=== PATIENT | female | born 1970 | race Caucasian/White ===

== ENCOUNTER 2017-05-07 11:25 | Day surgery (SDC) | payer BC ==
--- NOTE | 2017-05-07 12:22 | CT ---
EXAMINATION TYPE: CT soft tissue neck w con DATE OF EXAM: 05/07/2017 COMPARISON: NONE HISTORY: Thyroid nodule, Abnormal thryoid labs CT DLP: 715 mGycm CONTRAST: CT scan of the neck is performed with IV Contrast, patient injected with 100 ml mL of Omnipaque 300. Contrast enhanced CT of the neck was performed from the skull base through the lung apices. AIRWAY: The supraglottic, glottic, and subglottic portions of the airway appear patent and free of mass. SALIVARY GLANDS: The submandibular and parotid glands are free of mass or inflammatory process. THYROID GLAND: Nodular enlargement of both thyroid lobes right greater than left as well as the thyro id isthmus. The right thyroid lobe measures 6.2 cm craniocaudal dimension and on the left 4.6 cm. Inf erior margin extends to the superior margin of the sternum. The nodules are indistinct and difficult to measure. LYMPH NODES: No adenopathy seen greater than 1cm. LUNG APICES: No nodule or mass is seen. OTHER: Vascular structures are patent. No significant degenerative change of the cervical spine. N o abscess seen. IMPRESSION: Findings felt to reflect thyroid goiter.
[2017-05-07 12:56] VITALS: BP 132/79; PULSE 70; RESP 20; TEMP 97.9
--- NOTE | 2017-05-07 14:15 | US ---
Discontinued thyroid fine-needle aspiration HISTORY: Abnormal thyroid labs, R 90.6 Evaluation of the thyroid shows a diffuse heterogeneous gland. Discrete thyroid nodule for thyroid FN A is not identified IMPRESSION: Discontinued fine-needle aspiration thyroid
== END 2017-05-07 13:15 | disposition home or self-care (01) ==
LOC: RADCTMAIN 11:25
PROVIDERS: ATTEND Surgery Plastic and Reconstructive Surgery
DX: E04.1 Nontoxic single thyroid nodule (principal); R94.6 Abnormal results of thyroid function studies; R22.0 Localized swelling, mass and lump, head; Z53.8 Procedure and treatment not carried out for other reasons
CPT/HCPCS: 76536; 70491; 10022; Q9967

== ENCOUNTER → 2017-05-22 | Outpatient (CLI) | payer BC ==
[2017-05-22 13:28] VITALS: BP 138/83; PULSE 89; RESP 16; TEMP 98; BMI 42.1
[2017-05-22 14:47] LABS: CH 29.1; CHCM 32.4; HCT 40.1 % (34.0-46.0); HDW 2.75; HGB 12.8 gm/dL (11.4-16.0); MCH 28.9 pg (25.0-35.0); MCV 90.2 fL (80.0-100.0); Mean Platelet Volume 7.4; RBC 4.45 m/uL (3.80-5.40); RDW 14.5 % (11.5-15.5); WBC 7.7 k/uL (3.8-10.6)
[2017-05-22 15:31] LABS: INR 0.9 (<1.2); Partial Thromboplastin Time 23.5 sec (22.0-30.0); Prothrombin Time 9.4 sec (9.0-12.0)
[2017-05-22 20:32] LABS: ALT 45 U/L (9-52); AST 34 U/L (14-36); Alkaline Phosphatase 127 U/L (38-126); Anion Gap 10 mmol/L; Blood Urea Nitrogen 11 mg/dL (7-17); Calcium 9.2 mg/dL (8.4-10.2); Carbon Dioxide 21 mmol/L (22-30); Chloride 110 mmol/L (98-107); Cholesterol 146 mg/dL (<200); Glucose 104 mg/dL (74-99); HDL Cholesterol 45 mg/dL (40-60); Iron 39 ug/dL (37-170); Magnesium 1.8 mg/dL (1.6-2.3); Non-African American GFR(MDRD) >60 (>60 ml/min/1.73 sqM); Potassium 4.1 mmol/L (3.5-5.1); Sodium 141 mmol/L (137-145); Total Bilirubin 0.2 mg/dL (0.2-1.3)
[2017-05-22 20:42] LABS: % Iron Saturation 12.2 % (20-50); Prealbumin 19 mg/dL (18-36); Total Iron Binding Capacity 320 ug/dL (265-497)
[2017-05-22 21:37] LABS: Vitamin B12 727 pg/mL (239-931)
[2017-05-23 14:39] LABS: Hemoglobin A1C 5.4 % (4.2-6.1)
[2017-05-24 21:22] LABS: Selenium 106 mcg/L (63-160)
== END | disposition home or self-care (01) ==
LOC: BARWHC3 13:13
PROVIDERS: ATTEND Surgery Plastic and Reconstructive Surgery
DX: Z48.815 Encounter for surgical aftercare following surgery on the digestive system (principal); Z98.84 Bariatric surgery status; E66.01 Morbid (severe) obesity due to excess calories; E89.1 Postprocedural hypoinsulinemia; D50.8 Other iron deficiency anemias; E44.0 Moderate protein-calorie malnutrition; E55.9 Vitamin D deficiency, unspecified; K74.1 Hepatic sclerosis; N19 Unspecified kidney failure; K50.90 Crohn's disease, unspecified, without complications; Z68.41 Body mass index [BMI] 40.0-44.9, adult
CPT/HCPCS: 80053; 80061; 82306; 82525; 82607; 82728; 82746; 83036; 83540; 83550; 83735; 83970; 84100; 84134; 84255; 84425; 84443; 84590; 84630; 85027; 85610; 85730; 99211

== ENCOUNTER → 2017-06-11 | Outpatient (CLI) | payer BC ==
[2017-06-11 13:38] VITALS: BMI 42.1
== END | disposition home or self-care (01) ==
LOC: MNTWWP 11:33
PROVIDERS: ATTEND Surgery Plastic and Reconstructive Surgery
DX: E66.01 Morbid (severe) obesity due to excess calories (principal)
CPT/HCPCS: 97803

== ENCOUNTER → 2017-07-11 | Outpatient (CLI) | payer BC ==
[2017-07-11 15:09] VITALS: BMI 42.5
== END | disposition home or self-care (01) ==
LOC: MNTWWP 12:39
PROVIDERS: ATTEND Surgery Plastic and Reconstructive Surgery
DX: E66.01 Morbid (severe) obesity due to excess calories (principal)
CPT/HCPCS: 97803

== ENCOUNTER → 2018-01-15 | Outpatient (CLI) | payer BC ==
[2018-01-15 14:57] VITALS: BP 156/75; PULSE 105; RESP 16; TEMP 97.6; BMI 45.6
[2018-01-15 16:10] LABS: HCT 35.6 % (34.0-46.0); HGB 11.1 gm/dL (11.4-16.0); Hypochromasia Slight; MCH 26.1 pg (25.0-35.0); MCHC 31.2 g/dL (31.0-37.0); MCV 83.6 fL (80.0-100.0); Mean Platelet Volume 6.9; Platelet Count 402 k/uL (150-450); RBC 4.26 m/uL (3.80-5.40); RDW 14.7 % (11.5-15.5); WBC 7.2 k/uL (3.8-10.6)
[2018-01-15 16:26] LABS: ALT 40 U/L (9-52); AST 56 U/L (14-36); Albumin 3.5 g/dL (3.5-5.0); Alkaline Phosphatase 151 U/L (38-126); Anion Gap 15 mmol/L; Blood Urea Nitrogen 12 mg/dL (7-17); Calcium 9.3 mg/dL (8.4-10.2); Carbon Dioxide 20 mmol/L (22-30); Chloride 109 mmol/L (98-107); Cholesterol 145 mg/dL (<200); Glucose 104 mg/dL (74-99); HDL Cholesterol 49 mg/dL (40-60); LDL Cholesterol,Calculated 63 mg/dL (0-99); Magnesium 1.9 mg/dL (1.6-2.3); Phosphorus 4.3 mg/dL (2.5-4.5); Potassium 4.4 mmol/L (3.5-5.1); Sodium 144 mmol/L (137-145); Total Bilirubin 0.2 mg/dL (0.2-1.3); Total Protein 7.4 g/dL (6.3-8.2); Triglycerides 166 mg/dL (<150)
[2018-01-15 16:55] LABS: INR 0.9 (<1.2); Partial Thromboplastin Time 22.6 sec (22.0-30.0); Prothrombin Time 9.3 sec (9.0-12.0)
[2018-01-16 01:14] LABS: Parathyroid Hormone Intact 102.2 pg/mL (14.0-72.0)
[2018-01-16 02:00] LABS: Vitamin D 25 Hydroxy 19.9 ng/mL (30.0-100.0)
[2018-01-16 02:07] LABS: Folate, Serum >24.0 ng/mL; Iron Saturation 5.07 (12.00-45.00)
[2018-01-16 02:10] LABS: Hemoglobin A1C 5.4 % (4.0-6.0)
[2018-01-16 15:49] LABS: Zinc, Serum 53 ug/dL (60-130)
[2018-01-17 05:47] LABS: Vitamin A 36 ug/dL (38-106)
[2018-01-17 09:59] LABS: Vitamin B1 60 ug/L (38-122)
[2018-01-18 18:13] LABS: Selenium 125 mcg/L (63-160)
--- NOTE | 2018-02-08 15:00 | P.PN ---
Subjective Progress Note Date: 01/15/18 DATE OF SERVICE: 01/15/2018 CHIEF COMPLAINT: Bariatric assessment. HISTORY OF PRESENT ILLNESS: Lynn Cedeno is a 47-year-old female who is status post sleeve gastrectomy from August 2013. She is 4+ years out. At her initial presentation with a height of 5 foot 8, she had weighed 288 pounds. Today she comes in weighing 299 pounds. She initially had lost 69 pounds and has surpassed her initial weight. She has gained 23 pounds since her last visit 8 months ago. In total, she has gained 80 pounds, since her lowest weight. She comes in today looking for additional bariatric options. She reports developing bipolar disorder and now is on medications. She is on mood stabilizers. She is off anti-anxiety pills. She is eager for weight loss management. She is also seeing a new therapist. She has also developed Sjogren' s disease. She is 136 pounds overweight. PAST MEDICAL HISTORY: 1. Gastroesophageal reflux disease. 2. Obstructive sleep apnea. 3. Osteoarthritis. 4. Depression. 5. Hypertension. 6. Anxiety. 7. Hypothyroidism. 8. Fibromyalgia. 9. Left ventricular hypertrophy. 10. Hiatal hernia. 11. Panniculitis. 12. Bipolar disorder PAST SURGICAL HISTORY: 1. Cholecystectomy. 2. . 3. D&C. 4. Tubal ligation. 5. Bone spur removal. 6. Tenotomy left heel. 7. Laparoscopic sleeve gastrectomy. 8. Upper endoscopy. MEDICATIONS: 1. Trazodone 2. Multivitamin 3. BuSpar 4. Omeprazole 5. Naproxen 6. Synthroid 7. Neurontin 8. Cymbalta ALLERGIES: PENICILLIN. SOCIAL HISTORY: Lifelong nontobacco user. FAMILY HISTORY: Consistent with diabetes, including morbid obesity. REVIEW OF SYSTEMS: CONSTITUTIONAL: At her initial presentation with a height of 5 foot 8, she had weighed 288 pounds. Today she comes in weighing 299 pounds. She initially had lost 69 pounds and has surpassed her initial weight. She has gained 23 pounds since her last visit 8 months ago. In total, she has gained 80 pounds, since her lowest weight. She is 136 pounds overweight. RESPIRATORY: Obstructive sleep apnea. No reports of active asthma. CARDIOVASCULAR: Recurrent hypertension. Has hyperlipidemia. PSYCH: History of depression, including anxiety. Has bipolar disorder. HEENT: No reports of troubles with hearing. Wears glasses. ENDOCRINE: Has hypothyroidism. Past diabetes GI: Denies any diarrhea or constipation. Gastroesophageal reflux disease present. NEURO: History of fibromyalgia. Denies any seizure disorder. MUSCULOSKELETAL: History of lower back pain, exacerbated with panniculitis. HEMATOLOGIC: Denies any DVT or pulmonary embolism. SKIN: Recurrent panniculitis with erythema of the umbilicus. PHYSICAL EXAM: VITAL SIGNS: 5 foot 8, 299 pounds. Body mass is 45.6 Vital Signs Temp 97.6 F 01/15/18 16:00 Pulse 105 H 01/15/18 16:00 Resp 16 01/15/18 16:00 BP 156/75 01/15/18 16:00 Pulse Ox GENERAL: Well-developed female in no acute distress. ABDOMEN: Soft. Nontender. Nondistended. Moderate-sized pannus over 15 pounds. HEENT: No sclerae icterus. Extraocular movements grossly intact. Moist buccal mucosa. Wears glasses. NECK: Supple without lymphadenopathy. CHEST: Unlabored respirations. Equal bilateral excursions. CARDIOVASCULAR: Tachycardic. 2+ radial pulses. MUSCULOSKELETAL: No clubbing, cyanosis, or edema. NEURO: No focal or lateralizing signs. Cranial nerves II-12 grossly intact. PSYCH: Appropriate affect. Alert and oriented to person, place, and time. SKIN: Good skin turgor. Well-perfused. LABS: Previous labs is reviewed Iron is low Triglycerides is elevated Vitamin A is low ASSESSMENT: 1. Morbid obesity due to excess calories. 2. Body mass index reduced from 43.9 down to 42.1. 3. Status post sleeve gastrectomy. 4. Weight regain following sleeve gastrectomy. 5. Hypothyroidism. 6. Vitamin A deficiency. 7. Recurrent panniculitis. 8. Depression. 9. Resolved diabetes type 2. 10. Osteoarthritis. 11. Obstructive sleep apnea. 12. Dietary surveillance and counseling. 13. Thyroid goiter. 14. Bipolar disorder 15. Iron deficiency 16. Hypertriglyceridemia 17. Vitamin A deficiency PLAN: 1. Recommend bariatric dietitian visits. 2. Also recommend upper endoscopy for further evaluation and management. 3. Bariatric metabolic labs reviewed and recommend iron fusion. 4. Vitamin A supplement, 8000 units daily advised. Objective - Vital Signs Vital signs: Vital Signs Temp 97.6 F 01/15/18 14:54 Pulse 105 H 01/15/18 14:54 Resp 16 01/15/18 14:54 BP 156/75 01/15/18 14:54 Pulse Ox Intake & Output 01/14/18 01/15/18 01/15/18 18:59 06:59 18:59 Weight 136.078 kg - Labs CBC & Chem 7: 01/15/18 15:50 01/15/18 15:50
== END | disposition home or self-care (01) ==
LOC: BARWHC3 13:38
PROVIDERS: ATTEND Surgery Plastic and Reconstructive Surgery
DX: Z09 Encounter for follow-up examination after completed treatment for conditions other than malignant neoplasm (principal); E66.01 Morbid (severe) obesity due to excess calories; E03.9 Hypothyroidism, unspecified; E50.9 Vitamin A deficiency, unspecified; M79.3 Panniculitis, unspecified; F32.9 Major depressive disorder, single episode, unspecified; G47.33 Obstructive sleep apnea (adult) (pediatric); M19.90 Unspecified osteoarthritis, unspecified site; E04.9 Nontoxic goiter, unspecified; E78.1 Pure hyperglyceridemia; K21.9 Gastro-esophageal reflux disease without esophagitis; F41.9 Anxiety disorder, unspecified; E21.1 Secondary hyperparathyroidism, not elsewhere classified; F17.200 Nicotine dependence, unspecified, uncomplicated; D50.9 Iron deficiency anemia, unspecified; E89.1 Postprocedural hypoinsulinemia; E55.9 Vitamin D deficiency, unspecified; I10 Essential (primary) hypertension; K74.1 Hepatic sclerosis; N19 Unspecified kidney failure; K90.9 Intestinal malabsorption, unspecified; M79.7 Fibromyalgia; Z90.49 Acquired absence of other specified parts of digestive tract; Z98.51 Tubal ligation status; Z68.41 Body mass index [BMI] 40.0-44.9, adult; Z98.890 Other specified postprocedural states; Z79.891 Long term (current) use of opiate analgesic; Z71.3 Dietary counseling and surveillance; Z98.84 Bariatric surgery status; Z79.899 Other long term (current) drug therapy; Z88.0 Allergy status to penicillin
CPT/HCPCS: 36415; 80053; 80061; 82306; 82525; 82607; 82728; 82746; 83036; 83540; 83550; 83735; 83970; 84100; 84134; 84255; 84425; 84443; 84590; 84630; 85027; 85610; 85730; 99211